=== PATIENT | female | born 1960 | race African-American/Black ===

== ENCOUNTER → 2017-10-12 | Outpatient (CLI) | payer BC ==
--- NOTE | 2017-10-12 14:11 | RADIOLOGY REPORT (SQ) ---
EXAM DESCRIPTION: ANKLE LEFT COMPLETE COMPLETED DATE/TIME: 10/12/2017 11:42 am REASON FOR STUDY: ACUTE LT ANKLE PAIN M25.572 COMPARISON: None. NUMBER OF VIEWS: Three views. TECHNIQUE: AP, lateral, and oblique radiographic images acquired of the left ankle. LIMITATIONS: None. FINDINGS: MINERALIZATION: Normal. BONES: There is a tiny, acute fracture at the distal aspect of the fibula that may represent an avuls ion type fracture. JOINTS: No effusions. SOFT TISSUES: Soft tissue swelling is present about the lateral malleolus. OTHER: No other significant finding. IMPRESSION: Tiny, likely avulsion fracture at the distal tip fibula with associated soft tissue swel ling. TECHNICAL DOCUMENTATION: JOB ID: [id number] [employer]- All Rights Reserved Reading location - IP/workstation name: [email or web address]
== END ==
LOC: RAD 11:22
PROVIDERS: ATTEND Nurse Practitioner Family
DX: M25.572 Pain in left ankle and joints of left foot (principal); M79.89 Other specified soft tissue disorders